=== PATIENT | male | born 1950 | race Caucasian/White ===

== ENCOUNTER → 2020-04-24 | Outpatient (CLI) | payer MEDICARE, OTHER ==
[~2020-04-24] MED LIST: AEROECLIPSE II1 EACH MC; AERONEB GO NEB1 EACH MC; ALBUTEROL2.5 MG/3 M INH; ATORVASTATIN CA20 MG PO; BETAPACE 80MG T80 MG PO; BRILINTA 90 MG90 MG PO; CLARITIN 10MG T10 MG PO; COLACE 100MG C100 MG PO; COZAAR 25MG TAB25 MG PO; ELIQUIS 5 MG TAB5 MG PO; ELIQUIS5 MG PO; FLUOXETINE HCL20 M1 PO; HYDROCODON-ACE1 EAC4 PO; IBUPROFEN600 MG PO; IBUPROFEN800 MG PO; LISINOPRIL2.5 MG PO; LOPRESSOR 25 MG25 MG PO; MULTAQ 400 MG400 MG PO; PERCOCET 5-3251 EACH PO; PROVENTIL HFA6.7 GM INH; SOTALOL120 MG PO; TESSALON PERLE100 MG PO; ULTRAM50 MG PO; VIBRAMYCIN100 MG PO; VOLTAREN ARTHRI20 GM TOP; XARELTO10 MG PO
== END ==
LOC: LAB 15:16
PROVIDERS: Ophthalmology
DX: H20.9 Unspecified iridocyclitis (principal)
CPT/HCPCS: 36415; 86777; 86778

== ENCOUNTER 2020-08-08 20:17 | Emergency (ER) | payer MEDICARE ==
[~2020-08-08 20:17] MED LIST changes: -CLARITIN 10MG T10 MG PO; -COZAAR 25MG TAB25 MG PO; -HYDROCODON-ACE1 EAC4 PO; -VOLTAREN ARTHRI20 GM TOP
[2020-08-08] MEDS ORDERED: HYDROCODON-ACE1 EAC4 PO ×2 (21:32→21:38)
== END 2020-08-08 21:30 | disposition home or self-care (01) ==
LOC: ER1 20:17
DX: S80.02XA Contusion of left knee, initial encounter (principal); I10 Essential (primary) hypertension; I48.91 Unspecified atrial fibrillation; I25.2 Old myocardial infarction; Z88.2 Allergy status to sulfonamides; Z23 Encounter for immunization; W19.XXXA Unspecified fall, initial encounter; Y92.009 Unspecified place in unspecified non-institutional (private) residence as the place of occurrence of the external cause
CPT/HCPCS: 73562; 90471; 90715; 99283

== ENCOUNTER → 2020-09-23 | Outpatient (CLI) | payer MEDICARE ==
[~2020-09-23] MED LIST changes: +CLARITIN 10MG T10 MG PO; +COZAAR 25MG TAB25 MG PO; +HYDROCODON-ACE1 EAC4 PO; +VOLTAREN ARTHRI20 GM TOP; +Voltaren Gel 1% TOP
== END ==
LOC: HEART 5 10:10
DX: R06.02 Shortness of breath (principal); R94.2 Abnormal results of pulmonary function studies
CPT/HCPCS: 94060; 94729

== ENCOUNTER → 2020-10-07 | Outpatient (CLI) | payer MEDICARE | LOC: SLEEP 13:37 | DX: G47.33 Obstructive sleep apnea (adult) (pediatric) (principal); I51.9 Heart disease, unspecified | CPT/HCPCS: 95810 ==

== ENCOUNTER 2020-10-13 08:54 | Outpatient (CLI) | payer MEDICARE ==
[~2020-10-13] VITALS: Ht 172.7 cm; Wt 122.1 kg
[~2020-10-13 08:54] MED LIST changes: -CLARITIN 10MG T10 MG PO; -COZAAR 25MG TAB25 MG PO; -VOLTAREN ARTHRI20 GM TOP; -Voltaren Gel 1% TOP
[2020-10-13 10:02] LABS: HEMOGLOBIN 14.9 gm/dl (14.0-17.5); RED BLOOD COUNT 4.65 M/UL (4.20-5.50); WHITE BLOOD COUNT 7.5 K/UL (4.5-11.0)
[2020-10-13] MEDS ORDERED: CLARITIN 10MG T10 MG PO (11:10)
[2020-10-13] MEDS ORDERED: SOTALOL120 MG PO (11:13)
[2020-10-13] MEDS ORDERED: VOLTAREN ARTHRI20 GM TOP (11:14)
[2020-10-13] MEDS ORDERED: COZAAR 25MG TAB25 MG PO (11:15)
== END 2020-10-14 08:47 | disposition home or self-care (01) ==
LOC: CATH 08:54 → LAB 08:54 → CATH 10:30 → PROG CARE 15:44 → CATH 10-14 08:47
PROVIDERS: Internal Medicine Cardiovascular Disease
DX: I48.3 Typical atrial flutter (principal); I11.0 Hypertensive heart disease with heart failure; I50.22 Chronic systolic (congestive) heart failure; I25.10 Atherosclerotic heart disease of native coronary artery without angina pectoris; I25.5 Ischemic cardiomyopathy; I49.5 Sick sinus syndrome; E78.5 Hyperlipidemia, unspecified; F41.9 Anxiety disorder, unspecified; M19.90 Unspecified osteoarthritis, unspecified site; F32.9 Major depressive disorder, single episode, unspecified; Z87.891 Personal history of nicotine dependence; Z88.2 Allergy status to sulfonamides; Z79.01 Long term (current) use of anticoagulants; Z79.899 Other long term (current) drug therapy; Z20.822 Contact with and (suspected) exposure to COVID-19
CPT/HCPCS: 36415; 71046; 80048; 85025; 93005; 93609; 93620; 93621; 99152; 99153; C1730; C1733; C1766; J1200; J1644; J2250; J3010; J7040; U0002

== ENCOUNTER 2020-11-24 02:22 | Emergency (ER) | payer MEDICARE ==
[~2020-11-24 02:22] MED LIST changes: +CLARITIN 10MG T10 MG PO; +COZAAR 25MG TAB25 MG PO; +VOLTAREN ARTHRI20 GM TOP
[2020-11-24] MEDS ORDERED: Voltaren Gel 1% TOP (02:54)
== END 2020-11-24 03:03 | disposition home or self-care (01) ==
LOC: ER1 02:22
DX: M25.522 Pain in left elbow (principal); I48.91 Unspecified atrial fibrillation; I10 Essential (primary) hypertension; Z88.2 Allergy status to sulfonamides; Z79.899 Other long term (current) drug therapy
CPT/HCPCS: 99283

== ENCOUNTER 2020-12-04 10:18 | Emergency (ER) | payer MEDICARE ==
[~2020-12-04] VITALS: Ht 172.7 cm; Wt 117.9 kg
[~2020-12-04 10:18] MED LIST changes: +Voltaren Gel 1% TOP
== END 2020-12-04 13:44 | disposition home or self-care (01) ==
LOC: ER1 10:18
DX: Z23 Encounter for immunization (principal); U07.1 COVID-19; I11.9 Hypertensive heart disease without heart failure; E78.5 Hyperlipidemia, unspecified; Z88.2 Allergy status to sulfonamides
CPT/HCPCS: 99283; M0243

== ENCOUNTER → 2021-10-12 | Outpatient (CLI) | payer MEDICARE ==
[2021-10-13 08:14] LABS: HIV AB/P24 AG SCREEN Non Reactive (Non Reactive); RHEUMATOID ARTHRITIS FACTOR <10.0 IU/mL (<14.0)
[2021-10-13 13:09] LABS: ANGIOTENSIN-CONVERTING ENZYME 33 U/L (14-82)
[2021-10-13 16:12] LABS: LYME TOTAL ANTIBODY EIA Negative (Negative); TREPONEMA PALLIDUM ANTIBODIES Non Reactive (Non Reactive)
[2021-10-13 18:12] LABS: T PALLIDUM AB (FTA-AB) Non Reactive (Non Reactive)
[2021-10-14 19:12] LABS: QUANTIFERON MITOGEN VALUE >10.00 IU/mL (.); QUANTIFERON TB1 AG VALUE 0.04 IU/mL (.); QUANTIFERON TB2 AG VALUE 0.03 IU/mL (.); QUANTIFERON-TB GOLD PLUS Negative (Negative)
== END ==
LOC: LAB 13:19
PROVIDERS: Ophthalmology
DX: H20.10 Chronic iridocyclitis, unspecified eye (principal)
CPT/HCPCS: 81374; 82164; 86038; 86431; 86618; 86777; 86778; 86780; 87389

== ENCOUNTER → 2021-12-29 | Outpatient (CLI) | payer MEDICARE | LOC: KOH-I 10:00 | DX: Z13.6 Encounter for screening for cardiovascular disorders (principal); Z87.891 Personal history of nicotine dependence | CPT/HCPCS: 76706-PO ==